=== PATIENT | male | born 1975 | race Two or more races ===

== ENCOUNTER 2025-03-15 11:32 | Emergency (ER) | payer OTHER ==
[~2025-03-15] VITALS: Ht 170.2 cm; Wt 74.0 kg
[2025-03-15 11:35] VITALS: O2SAT 100
[2025-03-15 11:40] VITALS: BP 155/85; PULSE 51; RESP 14; TEMP 36.8; O2SAT 100
[2025-03-15 12:49] LABS: CLARITY URINE CLEAR (CLEAR); COLOR URINE YELLOW (YELLOW); GLUCOSE URINE NEGATIVE (NEGATIVE); KETONES URINE NEGATIVE (NEGATIVE); LEUKOCYTE ESTERASE URINE NEGATIVE (NEGATIVE); NITRITE URINE NEGATIVE (NEGATIVE); OCCULT BLOOD URINE NEGATIVE (NEGATIVE); PROTEIN URINE NEGATIVE (NEGATIVE); SPECIFIC GRAVITY URINE 1.003 (1.005-1.030); UROBILINOGEN URINE 0.2 E.U./dL (0.2-1.0)
[2025-03-15 13:01] LABS: BASOPHILS % 0.7 % (0.0-2.0); EOSINOPHILS % 1.3 % (0.0-5.0); HEMATOCRIT. 43.6 % (42.0-52.0); LYMPHOCYTES % 33.6 % (20.0-50.0); MEAN CORPUSCULAR HEMOGLOBIN 29.3 pg (28.0-32.0); MEAN CORPUSCULAR HGB CONC 32.2 g/dL (31.0-37.0); MEAN PLATELET VOLUME 8.7 fl (7.4-10.4); NEUTROPHILS % 55.4 % (40.0-76.0); PLATELET 208 x1000/uL (130-400); RED BLOOD CELL COUNT 4.79 mill/uL (4.7-6.1); RED CELL DISTRIBUTION WIDTH 13.3 % (11.6-14.6); WHITE BLOOD COUNT 4.4 x1000/uL (4.5-11.0)
[2025-03-15 13:04] LABS: CHLORIDE 106 mEq/L (98-107); POTASSIUM 3.7 mEq/L (3.5-5.1); SODIUM 138 mEq/L (136-145)
[2025-03-15 13:05] LABS: CALCIUM 9.2 mg/dL (8.7-10.4); CARBON DIOXIDE 27 mEq/L (21-32)
[2025-03-15 13:10] LABS: GLUCOSE 98 mg/dL (70-105); UREA NITROGEN BLOOD 8 mg/dL (9-23)
[2025-03-15] MEDS ORDERED: SULF1TAB48 MT (15:01)
== END 2025-03-15 15:14 | disposition home or self-care (01) ==
LOC: ER 11:32
DX: R10.2 Pelvic and perineal pain (principal); R35.0 Frequency of micturition; R30.0 Dysuria; R59.0 Localized enlarged lymph nodes; Z79.899 Other long term (current) drug therapy; Z98.890 Other specified postprocedural states
CPT/HCPCS: 36415; 76857; 80048; 81003; 85025; 99284